=== PATIENT | female | born 1960 | race Caucasian/White ===

== ENCOUNTER 2024-11-16 20:41 | Inpatient (IN) | payer MEDICARE ==
[~2024-11-16] VITALS: Ht 175.3 cm; Wt 59.0 kg
[2024-11-16] MEDS ORDERED: diphenhydrAMINE 50 MG/1 ML VIAL ONE (21:04)
[2024-11-16] MEDS ORDERED: PROCHLORPERAZINE EDISYLATE 10 MG/2 ML VIAL ONE (21:04)
[2024-11-16] MEDS: IV NORMAL SALINE 1000 ML BAG IV ONE ×2 (21:24→23:03)
[2024-11-16] MEDS: PROCHLORPERAZINE EDISYLATE 10 MG/2 ML VIAL IV ONE (21:24)
[2024-11-16] MEDS: diphenhydrAMINE 50 MG/1 ML VIAL IV ONE (21:24)
[2024-11-16] MEDS ORDERED: PANTOPRAZOLE SODIUM 40 MG VIAL ONE (21:32)
[2024-11-16] MEDS ORDERED: CEFTRIAXONE /D5W 50ML IVPB **ER PYXIS IV ONE (21:32)
[2024-11-16 21:37] LABS: PLATELET COUNT (AUTO) 419 K/uL (179-408); RED BLOOD CELL COUNT(AUTO) 4.81 MIL/uL (3.63-4.92); RED CELL DISTRIBUTION WIDTH 15.4 % (12.3-17.7); WHITE BLOOD COUNT (AUTO) 14.1 K/uL (3.8-11.8)
[2024-11-16 21:44] LABS: CREATININE 1.0 mg/dL (0.6-1.3); SODIUM SERUM 138 mmol/L (136-145); UREA NITROGEN, BLOOD 23 mg/dL (7-18)
[2024-11-16] MEDS: PANTOPRAZOLE SODIUM 40 MG VIAL IV ONE (21:48)
[2024-11-16] MEDS: CEFTRIAXONE 1 G in IV DEXTROSE 5% 50 ML IV ONE (21:49)
[2024-11-16 21:51] LABS: ASPARTATE AMINOTRANSFERASE 19 U/L (15-37); TOTAL PROTEIN, SERUM 7.4 g/dL (6.4-8.2)
[2024-11-16 21:54] LABS: LACTIC ACID 2.3 mmol/L (0.4-2.0)
[2024-11-16] MEDS ORDERED: IOHEXOL 300MG/ML 100 ML INFUS..BTL ONE (22:08)
[2024-11-16] MEDS ORDERED: SWABABLE VALVE TRANSFER SET EA MC ONE (22:08)
[2024-11-16] MEDS ORDERED: IOHEXOL 350 100 ML INFUS..BTL ONE (22:08)
[2024-11-16] MEDS ORDERED: IV NORMAL SALINE 500 ML IV ONE (22:08)
[2024-11-16] MEDS ORDERED: IV NORMAL SALINE 250 ML IV ONE (22:09)
[2024-11-16] MEDS ORDERED: DEXTROSE 50% 50 ML DISP.SYRIN IV PRN (22:30)
[2024-11-16] MEDS: BLOOD SUGAR DIAGNOSTIC 1 EACH STRIP VI SCH (22:30)
[2024-11-16] MEDS ORDERED: MORPHINE SULFATE 2 MG/1 ML DISP.SYRIN IV PRN (22:30)
[2024-11-16] MEDS ORDERED: CAPT50TA3 PO (22:39)
[2024-11-16] MEDS ORDERED: INSU100V37 SQ (22:39)
[2024-11-16] MEDS ORDERED: ACET-3117 PO (22:39)
[2024-11-16] MEDS ORDERED: norco PO (22:39)
[2024-11-16] MEDS ORDERED: CEPH500T PO (22:39)
[2024-11-16] MEDS ORDERED: BUPR100T13 PO (22:39)
[2024-11-16] MEDS ORDERED: ASPI81TA31 PO (22:39)
[2024-11-16] MEDS ORDERED: ROSU20TA2 PO (22:39)
[2024-11-16] MEDS ORDERED: CARV6.252 PO (22:39)
[2024-11-16] MEDS ORDERED: VENL-192 PO (22:39)
[2024-11-16] MEDS ORDERED: PREG50CA PO (22:39)
[2024-11-16] MEDS ORDERED: BISA5TAB10 PO (22:39)
[2024-11-16 23:02] LABS: *BILIRUBIN,URIN NEGATIVE (NEGATIVE); *BLOOD, URINE NEGATIVE (NEGATIVE); *CLARITY,URINE CLEAR (CLEAR); *COLOR,URINE LIGHT YELLOW (YELLOW); *KETONES,URINE TRACE (NEGATIVE); *PROTEIN,URINE 1+ (NEGATIVE); *UROBILINOGEN,URINE 0.2 E.U./dl (NORMAL); LEUKOCYTE ESTERASE ,URINE NEGATIVE (NEGATIVE); NITRITE, URINE NEGATIVE (NEGATIVE); UGLUCOSE 3+ (NEGATIVE)
[2024-11-16] MEDS ORDERED: METRONIDAZOLE 500 MG/NS 100ML 100 ML IV ONE (23:07)
[2024-11-16 23:08] LABS: SQUAMOUS EPITHELIAL CELL,UR FEW /HPF (NONE SEEN)
[2024-11-16] MEDS: METRONIDAZOLE 500 MG/NS 100ML 500 MG in PREMIXED 1 EACH IV SCH (23:14)
[2024-11-16] MEDS ORDERED: METOCLOPRAMIDE HCL 10 MG/2 ML VIAL ONE (23:15)
[2024-11-16] MEDS ORDERED: INSULIN REGULAR, HUMAN 1000 UNIT/10 ML VIAL ONE (23:17)
[2024-11-16] MEDS: METOCLOPRAMIDE HCL 10 MG/2 ML VIAL IV ONE (23:20)
[2024-11-16] MEDS ORDERED: LORAZEPAM 2 MG/1 ML VIAL ONE (23:59)
[2024-11-17] VITALS (9 sets, daily range): BP systolic 133–195; BP diastolic 59–94; TEMP 97–98.9; O2SAT 96–99
[2024-11-17] MEDS: IV NORMAL SALINE 1000 ML BAG IV ONE (00:06)
[2024-11-17] MEDS: LORAZEPAM 2 MG/1 ML VIAL IV ONE ×2 (00:06→00:16)
[2024-11-17] MEDS: ONDANSETRON 4 MG/2 ML VIAL IV PRN (05:35)
[2024-11-17] MEDS ORDERED: METRONIDAZOLE 500 MG/NS 100ML 500 MG in PREMIXED 1 EACH IV SCH (06:00)
[2024-11-17 06:33] LABS: PLATELET COUNT (AUTO) 444 K/uL (179-408); RED BLOOD CELL COUNT(AUTO) 4.41 MIL/uL (3.63-4.92); RED CELL DISTRIBUTION WIDTH 15.9 % (12.3-17.7); WHITE BLOOD COUNT (AUTO) 15.6 K/uL (3.8-11.8)
[2024-11-17 06:53] LABS: ASPARTATE AMINOTRANSFERASE 17.0 U/L (15-37); CREATININE 1.1 mg/dL (0.6-1.3); SODIUM SERUM 138.0 mmol/L (136-145); TOTAL PROTEIN, SERUM 6.9 g/dL (6.4-8.2); UREA NITROGEN, BLOOD 24.0 mg/dL (7-18)
[2024-11-17] MEDS: METRONIDAZOLE 500 MG/NS 100ML 500 MG in PREMIXED 1 EACH IV SCH (08:27)
[2024-11-17] MEDS: PANTOPRAZOLE SODIUM 40 MG VIAL IV SCH (08:28)
[2024-11-17] MEDS: ENALAPRILAT DIHYDRATE 1.25 MG/1 ML VIAL IV PRN (08:28)
[2024-11-17] MEDS: INSULIN REGULAR, HUMAN 1000 UNIT/10 ML VIAL SQ PRN (08:49)
[2024-11-17] MEDS: METOPROLOL TARTRATE 50 MG TABLET PO SCH (11:13)
[2024-11-17] MEDS: CARVEDILOL 6.25 MG TABLET PO SCH (11:30)
[2024-11-17] MEDS ORDERED: VENLAFAXINE 25 MG TABLET PO SCH (11:30)
[2024-11-17] MEDS: IV NORMAL SALINE 500 ML IV ONE (12:39)
[2024-11-17] MEDS: ACETAMINOPHEN 325 MG TABLET PO PRN (12:53)
[2024-11-17] MEDS ORDERED: PREGABALIN 50 MG CAPSULE PO SCH (13:00)
[2024-11-17] MEDS ORDERED: VENL150C58 PO (13:02)
[2024-11-17] MEDS ORDERED: BUPR-319 PO (13:21)
[2024-11-17] MEDS ORDERED: VENL75CA62 PO (13:58)
[2024-11-17] MEDS: buPROPion XL 150 MG TAB.SR.24H PO SCH (15:15)
[2024-11-17] MEDS: BISACODYL 5 MG TABLET.DR PO SCH (15:15)
[2024-11-17] MEDS: IV NS 1000 ML 1,000 ML IV PRN (15:15)
[2024-11-17] MEDS: VENLAFAXINE XR 75 MG TAB.ER.24H PO SCH (15:20)
[2024-11-17] MEDS: VENLAFAXINE XR 150 MG CAP.SR.24H PO SCH (15:20)
[2024-11-17] MEDS: PREGABALIN 50 MG CAPSULE PO SCH (17:20)
[2024-11-17] MEDS: ATORVASTATIN 40 MG TABLET PO SCH (20:26)
[2024-11-17] MEDS: INSULIN REGULAR, HUMAN 300 UNITS/3 ML VIAL SQ PRN (20:28)
[2024-11-17] MEDS ORDERED: CAPTOPRIL 12.5 MG TABLET PO SCH (21:00)
[2024-11-18] VITALS: BP 128/54; TEMP 98.6; O2SAT 99
[2024-11-18 04:00] VITALS: BP 116/50; TEMP 97.8; O2SAT 96
[2024-11-18 07:04] LABS: CREATININE 1.0 mg/dL (0.6-1.3); SODIUM SERUM 138.0 mmol/L (136-145); UREA NITROGEN, BLOOD 22.0 mg/dL (7-18)
[2024-11-18] MEDS ORDERED: ATORVASTATIN 20 MG TABLET PO SCH (09:00)
[2024-11-18 11:03] VITALS: BP 131/53; TEMP 98.3; O2SAT 94
[2024-11-18 11:33] LABS: PLATELET COUNT (AUTO) 358 K/uL (179-408); RED BLOOD CELL COUNT(AUTO) 3.55 MIL/uL (3.63-4.92); RED CELL DISTRIBUTION WIDTH 15.6 % (12.3-17.7); WHITE BLOOD COUNT (AUTO) 9.9 K/uL (3.8-11.8)
[2024-11-18] MEDS ORDERED: METR500T PO (13:15)
[2024-11-18] MEDS ORDERED: CIPR500S2 PO (13:15)
[2024-11-18] MEDS ORDERED: DEXTROSE 50% 50 ML DISP.SYRIN IV PRN (13:15)
[2024-11-18] MEDS ORDERED: INSULIN REGULAR, HUMAN 300 UNITS/3 ML VIAL SQ PRN (13:15)
[2024-11-18] MEDS: INSULIN REGULAR, HUMAN 1000 UNIT/10 ML VIAL SQ PRN (13:23)
[2024-11-18] MEDS ORDERED: BLOOD SUGAR DIAGNOSTIC 1 EACH STRIP VI SCH (16:30)
[2024-11-18] MEDS ORDERED: CIPR-262 PO (17:25)
== END 2024-11-18 15:00 | disposition home health service (06) | DRG 871 ==
LOC: ER 20:46 → TELE3 22:30
PROVIDERS: ADMIT Internal Medicine; ATTEND Nurse Practitioner Acute Care
PROC: 05HB33Z Insertion of Infusion Device into Right Basilic Vein, Percutaneous Approach (ICD-10-PCS; principal; 2024-11-18)
DX: A41.9 Sepsis, unspecified organism (principal); I21.A1 Myocardial infarction type 2; C37 Malignant neoplasm of thymus; C78.02 Secondary malignant neoplasm of left lung; C78.01 Secondary malignant neoplasm of right lung; I16.9 Hypertensive crisis, unspecified; N13.30 Unspecified hydronephrosis; E86.0 Dehydration; E10.65 Type 1 diabetes mellitus with hyperglycemia; R33.9 Retention of urine, unspecified; K52.9 Noninfective gastroenteritis and colitis, unspecified; K83.8 Other specified diseases of biliary tract; Z79.4 Long term (current) use of insulin; E78.5 Hyperlipidemia, unspecified; Z79.60 Long term (current) use of unspecified immunomodulators and immunosuppressants; N32.0 Bladder-neck obstruction; I95.1 Orthostatic hypotension; E10.40 Type 1 diabetes mellitus with diabetic neuropathy, unspecified; S82.201D Unspecified fracture of shaft of right tibia, subsequent encounter for closed fracture with routine healing; X58.XXXA Exposure to other specified factors, initial encounter; H54.7 Unspecified visual loss; Z79.899 Other long term (current) drug therapy; I11.9 Hypertensive heart disease without heart failure; E10.43 Type 1 diabetes mellitus with diabetic autonomic (poly)neuropathy; K31.84 Gastroparesis; Z79.82 Long term (current) use of aspirin
CPT/HCPCS: 36415; 71045; 71275; 83605; 83735; 84100; 84443; 84484; 85025; 85730; 86850; 86900; 86901; 87040; 87086; G0378; J0696; J0780; J1200; J1815; J1956; J2060; J2405; J2470; J2765; J3490; J7040; Q9967

== ENCOUNTER 2025-02-11 00:06 | Inpatient (IN) | payer MEDICARE ==
[~2025-02-11] VITALS: Ht 175.3 cm; Wt 59.0 kg
[~2025-02-11 00:06] MED LIST: ACET-3117 PO; ASPI81TA31 PO; BISA5TAB10 PO; BUPR-319 PO; CAPT50TA3 PO; CARV6.252 PO; CIPR-262 PO; INSU100V37 SQ; METR500T PO; PREG50CA PO; ROSU20TA2 PO; VENL150C58 PO; VENL75CA62 PO
[2025-02-11] MEDS ORDERED: DORZ10DR10 LEFTEYE (00:29)
[2025-02-11] MEDS ORDERED: CEPH500T PO (00:29)
[2025-02-11] MEDS ORDERED: METOCLOPRAMIDE HCL 10 MG/2 ML VIAL ONE ×3 (00:43→09:36)
[2025-02-11 00:55] LABS: PLATELET COUNT (AUTO) 449 K/uL (179-408); RED BLOOD CELL COUNT(AUTO) 4.57 MIL/uL (3.63-4.92); RED CELL DISTRIBUTION WIDTH 17.3 % (12.3-17.7); WHITE BLOOD COUNT (AUTO) 10.1 K/uL (3.8-11.8)
[2025-02-11 00:58] LABS: CREATININE 1.2 mg/dL (0.6-1.3); SODIUM SERUM 138.0 mmol/L (136-145); UREA NITROGEN, BLOOD 20.0 mg/dL (7-18)
[2025-02-11] MEDS: IV NORMAL SALINE 1000 ML BAG IV ONE (01:02)
[2025-02-11 01:04] LABS: ASPARTATE AMINOTRANSFERASE 25.0 U/L (15-37); TOTAL PROTEIN, SERUM 7.5 g/dL (6.4-8.2)
[2025-02-11] MEDS: METOCLOPRAMIDE HCL 10 MG/2 ML VIAL IV ONE ×2 (01:12→02:22)
[2025-02-11] MEDS ORDERED: HALOPERIDOL LACTATE 5 MG/1 ML VIAL ONE (01:13)
[2025-02-11] MEDS ORDERED: DEXAMETHASONE SOD PHOSPHATE 4 MG INJ ONE (01:13)
[2025-02-11] MEDS: HALOPERIDOL LACTATE 5 MG/1 ML VIAL IV ONE (01:22)
[2025-02-11] MEDS: DEXAMETHASONE SOD PHOSPHATE 4 MG INJ IV ONE (01:22)
[2025-02-11] MEDS ORDERED: diphenhydrAMINE 50 MG/1 ML VIAL ONE (02:16)
[2025-02-11] MEDS: diphenhydrAMINE 50 MG/1 ML VIAL IV ONE (02:22)
[2025-02-11] MEDS ORDERED: CLONIDINE HCL 0.2 MG TABLET ONE (02:33)
[2025-02-11] MEDS: CLONIDINE HCL 0.2 MG TABLET PO ONE (02:36)
[2025-02-11] MEDS ORDERED: PROCHLORPERAZINE EDISYLATE 10 MG/2 ML VIAL ONE (05:27)
[2025-02-11] MEDS ORDERED: LORAZEPAM 2 MG/1 ML VIAL ONE (05:28)
[2025-02-11] MEDS: LORAZEPAM 2 MG/1 ML VIAL IV ONE (06:11)
[2025-02-11] MEDS: PROCHLORPERAZINE EDISYLATE 10 MG/2 ML VIAL IV ONE (06:11)
[2025-02-11] MEDS ORDERED: METO-295 PO (06:13)
[2025-02-11] MEDS ORDERED: ONDA4TAB5 PO (06:13)
[2025-02-11 09:00] VITALS: BP 139/69
[2025-02-11] MEDS ORDERED: DEXTROSE 50% 50 ML DISP.SYRIN IV PRN (09:30)
[2025-02-11] MEDS: BLOOD SUGAR DIAGNOSTIC 1 EACH STRIP VI SCH (09:30)
[2025-02-11] MEDS: METOCLOPRAMIDE HCL 10 MG/2 ML VIAL IV SCH (09:35)
[2025-02-11 10:38] VITALS: BP 134/69; TEMP 98.4; O2SAT 96
[2025-02-11] MEDS: INSULIN REGULAR, HUMAN 1000 UNIT/10 ML VIAL SQ PRN (12:51)
[2025-02-11] MEDS: ACETAMINOPHEN 325 MG TABLET PO PRN (12:57)
[2025-02-11] MEDS: INSULIN REGULAR, HUMAN 1000 UNIT/10 ML VIAL SQ ONE (13:44)
[2025-02-11 15:30] VITALS: BP 98/50; TEMP 97.6; O2SAT 96
[2025-02-11] MEDS: CARVEDILOL 6.25 MG TABLET PO SCH (16:05)
[2025-02-11] MEDS: PREGABALIN 50 MG CAPSULE PO SCH (17:00)
[2025-02-11 19:44] VITALS: BP 105/58; TEMP 97.2; O2SAT 91
[2025-02-11] MEDS: INSULIN REGULAR, HUMAN 300 UNITS/3 ML VIAL SQ PRN (20:45)
[2025-02-11] MEDS: INSULIN GLARGINE,HUM 300 UNITS/3 ML CARTRIDGE SQ SCH (20:45)
[2025-02-11] MEDS: SENNOSIDES/DOCUSATE SODIUM TABLET PO SCH (20:46)
[2025-02-11] MEDS ORDERED: CAPTOPRIL 50 MG PO SCH (21:00)
[2025-02-11] MEDS: ONDANSETRON 4 MG/2 ML VIAL IV PRN (21:10)
[2025-02-11] MEDS: HYDROCODONE/APAP 5-325MG TABLET PO PRN (23:26)
[2025-02-12 03:53] LABS: *BILIRUBIN,URIN NEGATIVE (NEGATIVE); *BLOOD, URINE NEGATIVE (NEGATIVE); *COLOR,URINE YELLOW (YELLOW); *KETONES,URINE 1+ (NEGATIVE); *PROTEIN,URINE 2+ (NEGATIVE); *UROBILINOGEN,URINE 0.2 E.U./dl (NORMAL); LEUKOCYTE ESTERASE ,URINE NEGATIVE (NEGATIVE); NITRITE, URINE NEGATIVE (NEGATIVE); UGLUCOSE 2+ (NEGATIVE)
[2025-02-12 04:02] LABS: *CLARITY,URINE HAZY (CLEAR)
[2025-02-12 04:06] LABS: *AMPHETAMINE, URINE NEGATIVE (NEGATIVE); *BARBITURATE, URINE NEGATIVE (NEGATIVE); *BENZODIAZEPINE, URINE NEGATIVE (NEGATIVE); *CANNABINOID, URINE NEGATIVE (NEGATIVE); *COCCAINE, URINE NEGATIVE (NEGATIVE); *OPIATE, URINE POSITIVE (NEGATIVE); *PHENCYCLIDINE SCREEN,URINE NEGATIVE (NEGATIVE); FENTANYL, URINE NEGATIVE (NEGATIVE)
[2025-02-12 04:17] LABS: SQUAMOUS EPITHELIAL CELL,UR FEW /HPF (NONE SEEN)
[2025-02-12 05:15] LABS: *URINE HCG, QUAL NEGATIVE (NEGATIVE)
[2025-02-12 05:46] VITALS: BP 150/77; TEMP 98.5; O2SAT 92
[2025-02-12 06:42] LABS: PLATELET COUNT (AUTO) 532 K/uL (179-408); RED BLOOD CELL COUNT(AUTO) 4.37 MIL/uL (3.63-4.92); RED CELL DISTRIBUTION WIDTH 17.6 % (12.3-17.7); WHITE BLOOD COUNT (AUTO) 20.7 K/uL (3.8-11.8)
[2025-02-12 06:59] LABS: ASPARTATE AMINOTRANSFERASE 31.0 U/L (15-37); CREATININE 1.7 mg/dL (0.6-1.3); SODIUM SERUM 139.0 mmol/L (136-145); TOTAL PROTEIN, SERUM 6.5 g/dL (6.4-8.2); UREA NITROGEN, BLOOD 54.0 mg/dL (7-18)
[2025-02-12] MEDS ORDERED: VENLAFAXINE XR 75 MG TAB.ER.24H PO SCH (09:00)
[2025-02-12] MEDS ORDERED: VENLAFAXINE XR 150 MG CAP.SR.24H PO SCH (09:00)
[2025-02-12 09:49] LABS: BAND % (MANUAL) 1 % (0-10); LYMPHOCYTES % (MANUAL) 2 % (20-40); MONOCYTES % (MANUAL) 3 % (2-10); NEUTROPHILS % (MANUAL) 94 % (42-75); PLATELET ESTIMATE INCREASED
[2025-02-12] MEDS: IV NORMAL SALINE 500 ML IV ONE (10:06)
[2025-02-12] MEDS: IV NS 1000 ML 1,000 ML IV PRN (10:40)
[2025-02-12] MEDS ORDERED: CEFEPIME HCL 2 GM in IV DEXTROSE 5% 100 ML IV SCH (11:15)
[2025-02-12 11:34] VITALS: BP 158/84; TEMP 99; O2SAT 93
[2025-02-12] MEDS: INSULIN GLARGINE,HUM 300 UNITS/3 ML CARTRIDGE SQ SCH (11:53)
[2025-02-12] MEDS: CEFEPIME HCL 2 GM in IV DEXTROSE 5% 100 ML IV SCH (11:54)
[2025-02-12] MEDS ORDERED: HYDR-4209 PO (12:16)
[2025-02-12] MEDS: ASPIRIN 81 MG TAB.CHEW PO SCH (12:43)
[2025-02-12] MEDS: buPROPion XL 150 MG TAB.SR.24H PO SCH (12:43)
[2025-02-12] MEDS: VENLAFAXINE XR 75 MG TAB.ER.24H PO SCH (12:43)
[2025-02-12] MEDS: DORZOLAMIDE 2% OPHT DROP 10 ML BOTTLE LEFTEYE SCH (12:49)
[2025-02-12] MEDS: METOPROLOL TARTRATE 50 MG TABLET PO SCH (13:23)
[2025-02-12] MEDS: INSULIN REGULAR, HUMAN 1000 UNIT/10 ML VIAL SQ ONE (13:25)
[2025-02-12] MEDS: LOSARTAN POTASSIUM 25 MG TABLET PO SCH (13:45)
[2025-02-12 14:00] VITALS: BP 113/60; TEMP 98
[2025-02-12] MEDS: AMLODIPINE 5 MG TABLET PO SCH (14:45)
[2025-02-12 16:00] VITALS: BP 128/67; TEMP 98.9; O2SAT 94
[2025-02-12] MEDS: PREGABALIN 25 MG CAPSULE PO SCH (16:44)
[2025-02-12 19:37] VITALS: BP 126/64; TEMP 98.3; O2SAT 96
[2025-02-12] MEDS: ATORVASTATIN 40 MG TABLET PO SCH (20:45)
[2025-02-13 05:32] VITALS: BP 141/69; TEMP 97.4; O2SAT 94
[2025-02-13 06:38] LABS: PLATELET COUNT (AUTO) 422 K/uL (179-408); RED BLOOD CELL COUNT(AUTO) 3.99 MIL/uL (3.63-4.92); RED CELL DISTRIBUTION WIDTH 17.3 % (12.3-17.7); WHITE BLOOD COUNT (AUTO) 12.2 K/uL (3.8-11.8)
[2025-02-13 06:56] LABS: ASPARTATE AMINOTRANSFERASE 23.0 U/L (15-37); CREATINE KINASE, TOTAL 30.0 U/L (26-192); CREATININE 1.3 mg/dL (0.6-1.3); SODIUM SERUM 138.0 mmol/L (136-145); TOTAL PROTEIN, SERUM 6.0 g/dL (6.4-8.2); UREA NITROGEN, BLOOD 42.0 mg/dL (7-18)
[2025-02-13] MEDS: INSULIN GLARGINE,HUM 300 UNITS/3 ML CARTRIDGE SQ SCH (09:13)
[2025-02-13 11:36] VITALS: BP 147/57; TEMP 97.9; O2SAT 96
[2025-02-13] MEDS ORDERED: INSU100V37 SQ (15:51)
[2025-02-13 16:00] VITALS: BP 135/57; TEMP 98; O2SAT 94
[2025-02-13] MEDS ORDERED: METOCLOPRAMIDE HCL 10 MG/2 ML VIAL IV SCH (17:00)
[2025-02-14 06:06] LABS: PTH, INTACT 11 pg/mL (15-65)
== END 2025-02-13 16:30 | disposition home or self-care (01) | DRG 304 ==
LOC: ER 00:16 → MEDSURG3 09:26
PROVIDERS: ADMIT Internal Medicine; ATTEND Internal Medicine
DX: I16.0 Hypertensive urgency (principal); N17.0 Acute kidney failure with tubular necrosis; N39.0 Urinary tract infection, site not specified; C37 Malignant neoplasm of thymus; C78.00 Secondary malignant neoplasm of unspecified lung; E11.65 Type 2 diabetes mellitus with hyperglycemia; R11.15 Cyclical vomiting syndrome unrelated to migraine; Z79.4 Long term (current) use of insulin; E11.319 Type 2 diabetes mellitus with unspecified diabetic retinopathy without macular edema; H54.7 Unspecified visual loss; E78.5 Hyperlipidemia, unspecified; M89.8X9 Other specified disorders of bone, unspecified site; E86.0 Dehydration; R80.9 Proteinuria, unspecified; I10 Essential (primary) hypertension; Z79.899 Other long term (current) drug therapy; Z88.0 Allergy status to penicillin; I25.10 Atherosclerotic heart disease of native coronary artery without angina pectoris; D72.829 Elevated white blood cell count, unspecified
CPT/HCPCS: 36415; 70030-TC; 71250; 83690; 83735; 83970; 84100; 84155; 84165; 84703; 85025; 87040; 87086; A4606; A4663; G0378; J0360; J0692; J0780; J1100; J1200; J1630; J1815; J2060; J2405; J2765; J7040; J7050